=== PATIENT | female | born 1970 | race Caucasian/White ===

== ENCOUNTER 2017-12-22 04:01 | Observation (INO) | payer OTHER ==
[2017-12-22] MEDS ORDERED: Albuterol 2.5 MG/3 ML NEB.SOL* (0.083%) INH PRN (04:44)
[2017-12-22] MEDS ORDERED: CMCS:Melatonin (NF) 3 MG TAB PO PRN (04:44)
[2017-12-22] MEDS ORDERED: Ondansetron INJ* 2 MG/ML VIAL IV PRN (04:44)
[2017-12-22] MEDS ORDERED: Acetaminophen TAB* 325 MG PO PRN (04:44)
[2017-12-22] MEDS ORDERED: NS 0.9% 1000 ML* 1,000 ML IV SCH (04:45)
--- NOTE | 2017-12-22 04:51 | HP ---
H&P (Free Text) History and Physical: PCP: DON Garza Date/Time: 12/22/2017 0447 CC: R arm shaking HPI: Mrs Manley is a 47YO female poor historian w/ HX HTN & anxiety who reports sudden onset of uncontrollable RUE shaking around 2100 associated with slurred speech. This lasted "a couple of minutes" and when the shaking resolved she had some RUE numbness, but no tingling, weakness, difficulty swallowing, loss of bowel/bladder, chest pain, SOB, N/V, diarrhea, F/C, sweats, palpitations , or other issues. She has had a frontal/occipital headache for the past 2 days which is unusual only in that it has not responded to OTC meds. It is also notable that she had informed both [facility] [place] [facility] where she originally presented as well as Dr Araujo here at [facility] that she had had slurred speech, but denies this to me the 1st 2 times I asked, only admitting to it the 3rd time the question was asked. [place] [facility] reportedly attempted to contact our on-call neurology, but was unable. PMedHx HTN anxiety HX cervical CA SBO asthma GERD Ambulatory Orders Nursing to reconcile. Lisinopril 20 mg PO DAILY 03/21/13 ALPRAZolam TAB* [Xanax TAB*] 0.5 tab PO TID PRN 05/16/15 Aspirin EC Low Dose* [Ecotrin EC Low Dose*] 81 mg PO DAILY 05/16/15 Cholecalciferol [Vitamin D3] 2,000 unit PO DAILY 05/16/15 Isosorbide Dinitrate TAB* [Isordil TAB*] 30 mg PO DAILY 05/16/15 Venlafaxine EXT RELEASE CAP* [Effexor Xr CAP*] 150 mg PO DAILY 05/16/15 amLODIPine TAB* [Norvasc TAB*] 2.5 mg PO DAILY 05/16/15 Allergies No Known Allergies Allergy (Verified 12/22/17 04:31) PSurgHx endometrial ablation D&C section tubal ligation SocHx: 1/2PPD cigarettes, denies alcohol & recreational drugs; lives with her boyfriend; works as a date night caregiver; full code status FamHx: denies ROS: as above, otherwise reviewed and all were negative vitals: Vital Signs Temp 37.0 C 12/22/17 04:06 Pulse 61 12/22/17 04:18 Resp 19 12/22/17 04:18 BP 154/78 12/22/17 04:17 Pulse Ox 93 12/22/17 04:18 Intake & Output 12/21/17 12/21/17 12/22/17 11:59 23:59 11:59 Weight 79.379 kg Constitutional: NAD, normally developed, overweight white female HEENM: atraumatic; sclera/conjunctiva: anicteric/clear; hearing: clinically mildly decreased; oropharynx: clear, mucosa moist Neck: soft tissue: no nuchal rigidity; thyroid: normal Pulmonary: clear to auscultation bilaterally, good aeration, no accessory muscle use CV: RR/RR, normal S1S2, no carotid bruit, no jugular venous distention, 2+ B DP/ PT, no edema Abdominal: soft, non-distended, non-tender, no rebound/guarding/rigidity, normoactive bowel sounds, no hepatosplenomegaly or masses, no costovertebral angle tenderness Musculoskeletal: general: grossly intact, no tenderness w/ palpation Integumental: normal appearance and texture of exposed skin Psychiatric orientation: AA&O to PPS affect: calm mood: cooperative eye contact: poor content: unreliable responses: mildly slowed insight: poor Testing: (Kaz) reviewed ECG, personally reviewed: (Kaz) NSR rate 71, no ischemia CT brain WO: (Kaz) films currently unavailable for review: IMPRESSION: No acute intracranial abnormality CTA brain: (Kaz) films currently unavailable for review: IMPRESSION: Unremarkable CTA of the brain Impression: 47F presenting w/ transient neurologic complaints, seizure vs TIA vs anxiety DIAGNOSIS & PLAN Primary transient neurologic complaints, dDx seizure vs TIA vs anxiety : telemetry : neurologic checks : EEG in AM : MRI in AM : consult neurology in AM : supplemental oxygen : supportive care Secondary HTN : review meds once reconciled anxiety : review meds once reconciled tobacco use disorder : cessation advised, low motivation GERD : omeprazole Admission Rational: observation for transient neurologic complaint DVTp: heparin SQ Code Status: full
--- NOTE | 2017-12-22 05:04 | ED ---
Isabelle Engel Gabriel, scribed for Sharan Araujo MD on 12/22/17 at 0501 . Neurological HPI - HPI Summary HPI Summary: This patient is a 47 year old F BIBA to [facility] from [facility] because they have no neurology cover. Pt states she was sitting on her couch when her right arm starting jerking and she was unable to control it, this lasted three minutes. She was aware her arm was moving and after this began she reports right sided facial numbness and arm numbness lasting a few minutes after the uncontrolled shaking began. This only lasted a short time but when she regained feeling she was weak. During this episode she states she experienced slurred speech. Pt takes medication for HTN and she took a pill for anxiety during the "last storm". The patient currently has a headache and states she doesnt get them often. The patient rates the pain 5 /10 in severity. Takes ASA daily. - History of Current Complaint Chief Complaint: EDNeurologicalDeficit Stated Complaint: NEURO Time Seen by Provider: 12/22/17 04:07 Hx Obtained From: Patient Hx Last Menstrual Period: ablation 2009 Onset/Duration: Sudden Onset, Resolved Timing: Intermittent Episodes Lasting: - a few minutes Onset Severity: Severe Current Severity: None Pain Intensity: 5 Pain Scale Used: 0-10 Numeric Syncope Context: Loss of Consciousness: No Syncope Location: Partial Extremities Alleviating: Spontanious Resolution Associated Signs and Symptoms: Positive: Headache, Weakness, Numbness. Negative : Loss of Consciousness - Allergy/Home Medications Allergies/Adverse Reactions: Allergies Allergy/AdvReac Type Severity Reaction Status Date / Time No Known Allergies Allergy Verified 12/22/17 04:31 PMH/Surg Hx/FS Hx/Imm Hx Endocrine/Hematology History: Denies: Hx Diabetes, Hx Thyroid Disease Cardiovascular History: Reports: Hx Hypertension Denies: Hx Pacemaker/ICD Respiratory History: Denies: Hx Asthma, Hx Chronic Obstructive Pulmonary Disease (COPD) GI History: Denies: Hx Ulcer History: Denies: Hx Renal Disease Sensory History: Denies: Hx Hearing Aid Psychiatric History: Reports: Hx Panic Disorder - ANXIETY - Cancer History Cancer Type, Location and Year: cervical ca - Surgical History Surgery Procedure, Year, and Place: ablation. Small Bowel Obstruction with surgery 2009. laparoscopy 1988. tubal 2006. lt breast biopsy at [facility] 11/26 - Immunization History Date of Influenza Vaccine: Fall 2016 Infectious Disease History: No Infectious Disease History: Denies: Hx Hepatitis, Hx Human Immunodeficiency Virus (HIV), Traveled Outside the [place] in Last 30 Days - Family History Known Family History: Negative: Hypertension, Diabetes, Renal Disease, Respiratory Disease, Seizure Disorder, Blood Disorder - Social History Lives: With Family Alcohol Use: None Alcohol Amount: since 12/2014 Substance Use Type: Reports: None Smoking Status (MU): Heavy Every Day Tobacco Smoker Type: Cigarettes Amount Used/How Often: 1/2-1 ppd Length of Time of Smoking/Using Tobacco: age 16 Review of Systems Negative: Fever Neurological: Other - uncontrolled movement of right arm Positive: Headache, Weakness, Numbness, Slurred Speech All Other Systems Reviewed And Are Negative: Yes Physical Exam - Summary Physical Exam Summary: VITAL SIGNS: Reviewed. GENERAL: Patient is a well-developed and nourished female who is lying comfortable in the stretcher. Patient is not in any acute respiratory distress. HEAD AND FACE: No signs of trauma. No ecchymosis, hematomas or skull depressions. No sinus tenderness. EYES: PERRLA, EOMI x 2, No injected conjunctiva, no nystagmus. EARS: Hearing grossly intact. Ear canals and tympanic membranes are within normal limits. MOUTH: Oropharynx within normal limits. NECK: Supple, trachea is midline, no adenopathy, no JVD, no carotid bruit, no c- spine tenderness, neck with full ROM. CHEST: Symmetric, no tenderness at palpation LUNGS: Clear to auscultation bilaterally. No wheezing or crackles. CVS: Regular rate and rhythm, S1 and S2 present, no murmurs or gallops appreciated. ABDOMEN: Soft, non-tender. No signs of distention. No rebound no guarding, and no masses palpated. Bowel sounds are normal. EXTREMITIES: FROM in all major joints, no edema, no cyanosis or clubbing. NEURO: Alert and oriented x 3. No acute neurological deficits. Speech is normal and follows commands. SKIN: Dry and warm Triage Information Reviewed: Yes Vital Signs On Initial Exam: Initial Vitals Temp Pulse Resp BP Pulse Ox 98.6 F 70 16 168/83 94 12/22/17 04:06 12/22/17 04:06 12/22/17 04:06 12/22/17 04:06 12/22/17 04:06 Vital Signs Reviewed: Yes Diagnostics - Vital Signs Vital Signs Temp Pulse Resp BP Pulse Ox 12/22/17 04:18 61 19 93 12/22/17 04:17 154/78 12/22/17 04:06 98.6 F 70 16 168/83 94 - Laboratory Lab Statement: Any lab studies that have been ordered have been reviewed, and results considered in the medical decision making process. Course/Dx - Course Assessment/Plan: This patient is a 47 year old F BIBA to [facility] from [facility] ED because they have no neurology cover. Pt states she was sitting on her couch when her right arm starting jerking and she was unable to control it, this lasted three minutes. She was aware her arm was moving and after this began she reports right sided facial numbness and arm numbness lasting a few minutes after the uncontrolled shaking began. This only lasted a short time but when she regained feeling she was weak. During this episode she states she experienced slurred speech. Pt takes medication for HTN and she took a pill for anxiety during the last storm. The patient currently has a headache and states she doesnt get them often. The patient rates the pain 5 /10 in severity. Takes ASA daily. An EKG reveals NSR at 71 BPM Normal axis. Normal interval. No ischemic changes time 2147 done at [place]. I reviewed the blood work and CT head done at [place]. Test results with no significant abnormalities. We discussed patient care with Dr. Kumar and they agreed to admit the patient. Patient will be admitted. The patient is agreeable with this plan. - Diagnoses Provider Diagnoses: seizure vs TIA - Physician Notifications Discussed Care Of Patient With: Salvador Kumar Time Discussed With Above Provider: 04:30 Instructed by Provider To: Admit As Inpatient Discharge - Discharge Plan Condition: Fair Disposition: ADMITTED TO [facility] Referrals: Tita Tabares PA [Primary Care Provider] - The documentation as recorded by the Isabelle lucero Gabriel accurately reflects the service I personally performed and the decisions made by me, Sharan Araujo MD.
[2017-12-22 05:28] LABS: ABS Basophils 0.1 10^3/ul (0-0.2); ABS Eosinophils 0.5 10^3/ul (0-0.6); ABS Monocytes 0.9 10^3/ul (0-0.8); ABS Neutrophils 5.4 10^3/ul (1.5-7.7); ABS Nucleated RBC 0 10^3/ul; Hematocrit 39 % (35-47); Hemoglobin 13.2 g/dl (12.0-16.0); Lymphocyte % 42.2 % (25-47); Mean Corpuscular HGB Conc 34 g/dl (31-36); Mean Corpuscular Hemoglobin 32 pg (27-31); Mean Corpuscular Volume 94 fL (80-97); Mean Platelet Volume 8 um3 (7.4-10.4); Nucleated Red Blood Cells % 0.1; Platelet Count 232 10^3/ul (150-450); Red Blood Count 4.11 10^6/ul (4.0-5.4); Red Cell Distribution Width 12 % (10.5-15); White Blood Count 11.7 10^3/ul (3.5-10.8)
[2017-12-22] MEDS ORDERED: hydrALAZINE IV* 20 MG/ML VIAL IV PRN (05:36)
[2017-12-22 05:43] LABS: EGFR Non-African American 96.8 (>60)
[2017-12-22 05:45] LABS: INR 0.9 (0.77-1.02)
[2017-12-22] MEDS ORDERED: Omeprazole CAP* 20 MG PO SCH (06:00)
[2017-12-22] MEDS ORDERED: LORazepam INJ* 2 MG/ML 1 ML VIAL IV PUSH ONE (08:20)
[2017-12-22] MEDS ORDERED: Docusate CAP* 100 MG PO SCH (09:00)
[2017-12-22] MEDS ORDERED: Aspirin EC Low Dose* 81 MG TAB.EC PO SCH (09:00)
[2017-12-22] MEDS ORDERED: amLODIPine TAB* 5 MG PO SCH (09:00)
[2017-12-22] MEDS ORDERED: Lisinopril TAB* 10 MG PO SCH (09:00)
--- NOTE | 2017-12-22 12:16 | RAD ---
INDICATION: TIA CVA workup. COMPARISON: Comparison is made with a prior CT of the brain from every 2018. TECHNIQUE: Sagittal T1, axial T1, T2, susceptibility, FLAIR and diffusion weighted images were obtained. The exam is limited due to motion artifact. FINDINGS: The ventricles, cisterns and sulci appear to be within normal limits. No significant focal abnormality or mass effect is seen. No areas of restricted diffusion are present. There is no evidence for infarct or hemorrhage. The visualized portion of the paranasal sinuses and mastoid air cells appear clear. IMPRESSION: SLIGHTLY LIMITED EXAM, NO EVIDENCE FOR ACUTE INTRACRANIAL ABNORMALITY.
--- NOTE | 2017-12-22 14:28 | ECHO ---
Patient: RIGO KIM [facility] Rec#: [id number] : 1970 Date: 12/22/2017 Age: 47y Height: 172.72 cm / 68.0 in Weight: 79.38 kg / 175.0 lbs Sex: F BSA: 1.93 Room#: [facility] Admit Date#: 12/22/2017 Type: Inpatient Referring: Salvador Kumar MD Reading: Hayes Palm MD Professor Of Medicine: Lindsay Almaraz RD,RDMS Transthoracic Echocardiogram Indication: TIA BP: 129/95 HR: 68 Rhythm: NSR Findings History: Murmur, HTN, smoker Technical Comments: The study quality is good. Left Ventricle: The left ventricular chamber size is normal. Mild concentric left ventricular hypertrophy is observed. There is normal left ventricular systolic function. The estimated ejection fraction is 60-65%. There is no consistent Doppler evidence of clinically significant diastolic dysfunction. Left Atrium: The left atrial chamber size is normal. Right Ventricle: The right ventricular chamber size and systolic function are within normal limits. The right ventricle wall thickness is mildly increased. Right Atrium: The right atrial cavity size is normal. Aortic Valve: The aortic valve is trileaflet. The aortic valve leaflets are mildly thickened. There is moderate thickening of the left coronary cusp. There is moderate thickening of the non coronary cusp. Systolic excursion of the non coronary cusp is reduced. Systolic excursion of the left coronary cusp is reduced. There is mild aortic regurgitation. There is mild aortic stenosis. The aortic valve area, by peak velocities, is calculated at 1.6 cm2. Highest aortic valve velocity was acquired with Pedoff in suprasternal notch position. Mitral Valve: The mitral valve leaflets appear normal. There is no evidence of mitral regurgitation. There is no evidence of mitral stenosis. Tricuspid Valve: The tricuspid valve leaflets are normal. There is trace tricuspid regurgitation. Unable to estimate the right ventricular systolic pressure. Pulmonic Valve: There is no evidence of pulmonic valve thickening. There is no evidence of pulmonic regurgitation. Pericardium: There is no significant pericardial effusion. Aorta: The aortic root appears normal. There is no dilatation of the aortic arch. Pulmonary Artery: The main pulmonary artery appears normal. Venous: The inferior vena cava appears normal in size. There is a greater than 50% respiratory change in the inferior vena cava dimension. Summary: There was not any prior study for comparison. Conclusions Mild concentric left ventricular hypertrophy is observed. There is normal left ventricular systolic function. The right ventricle wall thickness is mildly increased. There is moderate thickening of the left coronary cusp. There is moderate thickening of the non coronary cusp. There is mild aortic regurgitation. There is mild aortic stenosis. The estimated ejection fraction is 60-65%. Measurements Name Value Normal Range RVIDd (AP) 2D 2.8 cm (0.9 - 2.6) RVDdMajor (2D) 2.6 cm (2.2 - 4.4) RAd ISD 4CH 4.2 cm (3.4 - 4.9) RA (A4C)W 3.9 cm (2.9 - 4.6) IVSd (2D) 1.1 cm (0.6 - 1) LVPWd (2D) 1.1 cm (0.6 - 1) LVIDd (2D) 4.6 cm (3.6 - 5.4) LVIDs (2D) 3 cm - LV FS (2D) 35 % (25 - 45) Aortic Annulus 2.1 cm (1.4 - 2.6) Ao root diameter (2D) 3 cm (2.1 - 3.5) Ascending Ao 2.9 cm (2.1 - 3.4) Aortic arch 2.4 cm (1.8 - 3.4) LA dimension (AP) 2D 3 cm (2.3 - 3.8) LAd ISD 4CH 5.3 cm (2.9 - 5.3) LA ISD 4CH W 4.8 cm (2.5 - 4.5) Name Value Normal Range LA ESV SP 4CH (A/L) 62.37 ml - LA ESV SP 2CH (A/L) 48.79 ml - LA ESV BP (A/L) 58.29 ml - LA ESV BP (A/L) index 30 ml/m2 - LA ESV SP 4CH (MOD) 58.76 ml - LA ESV SP 2CH (MOD) 46.39 ml - LV EDV SP 4CH (MOD) 91.18 ml - LV ESV SP 4CH (MOD) 25.47 ml - EF SP 4CH (MOD) 72.07 % - LV EDV SP 2CH (MOD) 86.21 ml - LV ESV SP 2CH (MOD) 38.34 ml - EF SP 2CH (MOD) 55.52 % - LV EDV BP 90.58 ml - LV ESV BP 31.71 ml - BP EF (MOD) 65 % - Name Value Normal Range MV E-wave Vmax 0.7 m/sec - MV deceleration time 268 msec - MV A-wave Vmax 0.8 m/sec - MV E:A ratio 0.9 ratio - LV septal e' Vmax 0.07 m/sec - LV lateral e' Vmax 0.09 m/sec - LV E:e' septal ratio 10 ratio - LV E:e' lateral ratio 8 ratio - Name Value Normal Range AV Vmax 2.6 m/sec - AV VTI 54 cm - AV peak gradient 27 mmHg - AV mean gradient 11 mmHg - LVOT diameter 2 cm - LVOT Vmax 1.3 m/sec - LVOT VTI 32 cm - LVOT peak gradient 7 mmHg - LVOT mean gradient 3.4 mmHg - DOI (VTI) 0.6 ratio - SV LVOT 97.38 ml - HAYDEN (continuity Vmax) 1.6 cm2 - HAYDEN (continuity VTI) 1.9 cm2 - AR PHT 791.22 msec - AR peak gradient 84.57 mmHg - DIANA Vmax 1.1 m/sec - Name Value Normal Range RAP 8 mmHg - IVC diameter 1.6 cm - Name Value Normal Range PV Vmax 0.9 m/sec - PV peak gradient 3.2 mmHg -
[2017-12-22 16:52] VITALS: BP 119/69
--- NOTE | 2017-12-22 23:54 | CONS ---
NEUROLOGY CONSULTATION: DATE OF CONSULT: 12/22/17 REFERRING PROVIDER: DON Cloud LOCATION: She is an inpatient in room 441. CHIEF COMPLAINT: Shaking spell. HISTORY OF PRESENT ILLNESS: Madison Manley is a 47-year-old right-handed woman, who was at home with her son and boyfriend yesterday when her right arm started to shake. It "terrified" her and her boyfriend called the ambulance. She was able to speak and did not lose consciousness during the episode at all. Her boyfriend said her speech sounded somewhat slurred. She remembers the whole thing. She does not recall feeling sick prior to it, but just that her hand started shaking and it scared her. 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 Normally, her hands do not bother her. She does have an anxiety disorder and her anxiety medication was changed a week ago. She only takes it when she feels very anxious, which is less than once a month. She does not know the name of it. She has never had a seizure before. There is no history of head trauma and no family history of epilepsy. PAST MEDICAL HISTORY: Notable for cervical stenosis, dystonic head tremor, anxiety disorder. She has history of hypertension, gastroesophageal reflux. MEDICATIONS: At home, consist of: 1. Norvasc 2.5 mg p.o. q. day. 2. Albuterol inhaler p.r.n. 3. Aspirin 81 mg p.o. q. day. 4. Lisinopril 20 mg p.o. q. day. 5. Hydroxyzine 25 mg p.o. t.i.d. p.r.n. anxiety attack. ALLERGIES: She does not have any drug allergies. FAMILY HISTORY: Negative for epilepsy. She is a nonsmoker, does not drink alcohol. Lives at her own home with her son. REVIEW OF SYSTEMS: Negative for seizures, head trauma, cerebrovascular events, cardiac, pulmonary, renal, GI, or disease. No recent weight loss. No recent sore throats, fevers, or other respiratory symptoms. PHYSICAL EXAM: She is a little bit overweight, well-hydrated. Vitals: Temperature 97.4, blood pressure most recently 153/83, heart rate in the 60s and regular, respiratory rate is 16, and oxygen saturation is 97% on room air. Lungs are clear bilaterally. Neck is supple. Head is atraumatic. There are no cervical bruits. Oral mucosa is moist and atraumatic. Heart is in a regular rhythm without murmurs. Neurological exam, pupils react equally from about 3.5 to 2.5 mm. Eye movements and visual koroma are normal. Funduscopic exam reveal sharp discs bilaterally. Facial musculature is symmetric. Facial sensation to light touch is symmetric. Palate and tongue appear normal, there is no dysarthria. Neck strength is intact and hearing is intact. Motor exam reveals normal muscle tone, strength in the limbs proximally and distally. There is no pronator drift. Sensory exam is intact to light touch and temperature and vibration. She has a mild neck tremor. There is very mild sustention tremor in the hands. There is no rest tremor. [id number] maneuver is normal bilaterally. Finger taps are normal bilaterally. Reflexes are intact and symmetric in upper and lower extremities. Plantar responses are flexor bilaterally. She is alert and oriented and good historian. Memory is intact and language is fluent. She has adequate attention, concentration, and fund of knowledge. DIAGNOSTIC STUDIES/LAB DATA: Includes an EEG which read earlier today and it is a normal awake EEG. MRI of the brain, images are reviewed and the report is also a normal MRI of the brain. Other laboratory studies notable for normal CBC, normal chemistry profile, hemoglobin A1c 5.8%. Reports from [facility] Emergency Room CT angiogram of the neck was normal. She had an echocardiogram earlier today, also interpreted as normal. IMPRESSION AND PLAN: Impression is that of probable anxiety attack. I doubt she had a seizure with right arm shaking in a right-handed person who is able to speak and no loss of consciousness. I think she could be discharged on her usual home medications. If she has recurrent spells, she could be reevaluated by Dr. Pineda. [id number]/[facility] #: [id number] TERELL
[2017-12-23] MEDS ORDERED: Heparin VIAL(*) 5000 UNITS/ML VIAL (FIVE THOUSAND) SUBCUT SCH (06:00)
[2017-12-23] MEDS ORDERED: Aspirin EC Low Dose* 81 MG TAB.EC PO SCH (09:00)
--- NOTE | 2017-12-23 10:08 | EEG ---
ELECTROENCEPHALOGRAPHY: DATE OF STUDY: 12/22/17 REFERRING PROVIDER: Dr. Kumar. LOCATION: She is an inpatient in room 441. CLINICAL HISTORY: Episode of slurred speech and right arm shaking. MEDICATIONS: Include: 1. Apresoline. 2. Heparin. 3. Prinivil. 4. Norvasc. 5. Zofran. REPORT: The 16-channel EEG is remarkable for background rhythms consisting of a well formed alpha rh ythm in the posterior derivations at 9 cycles per second, which is symmetric and suppressed by eye op ening. Low voltage beta rhythms are seen bifrontally. The patient drowses intermittently throughout the recording with central and bitemporal theta rhythms noted. Stage II sleep is not achieved. Acti vation procedures are not attempted. There are no focal, lateralize, or epileptiform abnormalities. INTERPRETATION: Normal awake and drowsy EEG. [id number]/[facility] #: [id number]
--- NOTE | 2017-12-23 15:42 | DS ---
CC: Dr. Tita Tabares * DISCHARGE SUMMARY: DATE OF ADMISSION: 12/22/17 DATE OF DISCHARGE: 12/22/17 PRIMARY CARE PROVIDER: DON Cordova. MY ATTENDING WHILE IN THE HOSPITAL: Yoandy Wiley MD * (DICTATED BY DON SIEGEL) PRIMARY DISCHARGE DIAGNOSES: 1. Probable anxiety attacks. 2. Tremor. SECONDARY DISCHARGE DIAGNOSES: 1. Hypertension. 2. Prediabetes. 3. Anxiety. 4. Asthma. 5. Gastroesophageal reflux disease. STUDIES DONE WHILE IN THE HOSPITAL: Brain MRI from 12/22/17 read as slightly limited exam. No evidence for acute intracranial abnormality. Transthoracic echocardiogram from 12/22/17 shows mild concentric left ventricular hypertrophy , normal left ventricular systolic function. Right ventricle wall thickness mildly increased, moderate thickening of the left coronary cusp, moderate thickening of the noncoronary cusp, mild aortic regurgitation, mild aortic stenosis. Estimated ejection fraction 60% to 65%. EEG done while in the hospital discussed with Dr. Phu Ojeda of Neurology and it was normal. CT of the brain from [facility] was read by their neurologist as normal. No intracranial abnormality. CTA of the brain from [facility] read as unremarkable. MEDICATIONS AT DISCHARGE: 1. Lisinopril 20 mg p.o. daily. 2. Amlodipine 2.5 mg p.o. daily. 3. Aspirin 81 mg p.o. daily. 4. Hydroxyzine 25 mg p.o. t.i.d. There are no changes made to the patient's medications while in the hospital. HOSPITAL COURSE: This is a brief summary of the patient's presentation. For more details, please see history and physical from Dr. Salvador Kumar on 12/22. In brief, the patient is a 47-year-old female with past medical history significant as noted above who presents with a brief episode of uncontrolled right upper extremity shaking and slurred speech that lasted a couple minutes. The patient also had some right upper extremity and right facial numbness, which resolved also in the course of couple minutes. The patient denied weakness, difficulty swallowing, loss of bowel or bladder control, or other associated symptoms. The patient has a headache, which is not uncommon for her and cannot respond to [id number] meds for couple of days. The patient was equivocal in the emergency department whether or not she had slurred speech. The patient had returned to baseline at the time she was examined. The patient states that she had a blood pressure of 230/110 when being examined by the paramedics. However, this was not documented and her blood pressure got while in the emergency department was 178/77. The patient originally presented to [facility] who was going to admit her and consult Neurology, but did not have Neurology available. The patient was then sent to this institution. The patient was admitted and had a workup for TIA as above. The patient had no signs of TIA and no abnormal laboratory findings while in the hospital except for a slightly elevated hemoglobin A1c as 5.8, which is 1 points into the prediabetic range and LDL cholesterol of 121. The patient's white blood cell count was also 11.7. The patient's HDL cholesterol was 46.4. The patient was seen in consultation by Dr. Ojeda of Neurology and it was deemed that this was most unlikely due to seizure or ischemic event. The patient sees Dr. Pineda for a neck tremor, which is known, but does not have any known cause, but that sometimes affects her arms as well. It was deemed this is likely an anxiety attack exacerbating an underlying tremor. Control of the patient's anxiety was discussed with the patient and she stated that she had only taken her hydroxyzine once and that she recently had a change in medication for her anxiety discontinuing her Xanax, which she previously had as needed for anxiety. The patient was amenable to discharge. PHYSICAL EXAM ON DAY OF DISCHARGE: General: The patient is a 47-year-old female appears stated age and sitting comfortably in bed, in no acute distress. Vital Signs: At the time of discharge; temperature 98.2, pulse rate 67, respiratory rate 20, oxygen saturation 98% on room air, blood pressure 119/69. Neck: Supple, nontender. No lymphadenopathy. No carotid bruits auscultated. Cardiac: Regular rate and rhythm. No clicks, murmurs, gallops, or rubs. Pulses 2+ in bilateral dorsalis pedis, posterior tibialis, and radial areas. Respiratory: Clear to auscultation bilaterally. No wheezes, rales, or rhonchi. Good air exchange bilaterally. Skin: Clean, dry, and intact. No rash. Neuro: Cranial nerves II through XII intact. Strength 5/5 in the bilateral upper and lower extremities distally and proximally. Sensation to light touch intact in the bilateral upper extremities distally and proximally. Reflexes 2+ in bilateral biceps, patellar, and Achilles area, Babinski's downgoing bilaterally. Cerebellar testing including [id number]-mr-fjwn, rapid alternating movements, and oqlf-gv-vaub performed without difficulty. LABORATORY DATA ON DAY OF DISCHARGE: White blood cell count 11.7, hemoglobin 13.2, and platelet count 232. INR 0.9, APTT 25.6. Sodium 135, potassium 4.0, chloride 106, carbon dioxide 22, anion gap 7, BUN 14, creatinine 0.66, glucose 101. Hemoglobin A1c 5.8. Calcium 9.1. Triglycerides 145, cholesterol 196, LDL cholesterol 121, HDL cholesterol 46.4. DISCHARGE PLAN: The patient was discharged to home. This episode most likely due to an anxiety attack. The patient should follow up with her primary care provider for better control of her anxiety. The patient should address her hemoglobin A1c, which is in the prediabetic range. The patient should also discuss her LDL cholesterol. The patient does not meet Peck criteria for treatment of her hyperlipidemia at this time. The patient should continue on aspirin for primary prevention of stroke and coronary artery disease. The patient should return to the hospital for repeat episode such as this, chest pain, shortness of breath, or other alarming symptoms. The patient should engage in activity as tolerated and have a heart healthy diet without caffeine. TIME SPENT: Approximately 60 minutes was spent on this discharge, 30 of which was spent [id number] with the patient obtaining history and physical and discussing the treatment plan. DON SIEGEL [id number]/[facility] #: [id number] TERELL
== END 2017-12-22 17:45 | disposition home or self-care (01) ==
LOC: ED 04:01 → MEDTELE 04:43
PROVIDERS: ADMIT Hospitalist; ATTEND Hospitalist
DX: R25.1 Tremor, unspecified (principal); I10 Essential (primary) hypertension; R73.03 Prediabetes; F41.9 Anxiety disorder, unspecified; J45.909 Unspecified asthma, uncomplicated; K21.9 Gastro-esophageal reflux disease without esophagitis; R51 Headache; Z79.82 Long term (current) use of aspirin; Z85.41 Personal history of malignant neoplasm of cervix uteri; R06.02 Shortness of breath; R53.1 Weakness; F17.210 Nicotine dependence, cigarettes, uncomplicated
CPT/HCPCS: 36415; 70551; 80048; 80061; 83036; 85025; 85610; 85730; 93306; 94760; 95819; 96374; 99284; 99406; A9270-GY; G0378; J2060

== ENCOUNTER 2018-02-16 11:28 | Emergency (ER) | payer OTHER ==
[2018-02-16 12:02] VITALS: BP 172/79
--- NOTE | 2018-02-16 12:39 | UC ---
Upper Extremity HPI - HPI Summary HPI Summary: 48 year old female with left arm weakness. She has [place] [facility] [place] and seen by Neuro Dr Ojeda . No acute findings on exam then and had neg echo, CT, MRI, EKG. Today with arm weakness in her other arm. Weakness been present for 3 days and not improved AND started after she woke up. Can not parts picker keys and can not extend hand easily. Has history of cervical stenosis and was to see Dr Ojeda in April. - History of Current Complaint Chief Complaint: UCGeneralIllness Stated Complaint: RIGHT ARM NUMB Time Seen by Provider: 02/16/18 11:58 Hx Obtained From: Patient, Family/Audiovisual Production Specialist Hx Last Menstrual Period: ablation 2009 Onset/Duration: Sudden Onset Severity Initially: Moderate Severity Currently: Moderate Pain Intensity: 0 Aggravating Factor(s): Nothing Alleviating Factor(s): Nothing Associated Signs And Symptoms: Positive: Weakness, Numbness/Tingling Related History: Dominant Hand Right - Allergies/Home Medications Allergies/Adverse Reactions: Allergies Allergy/AdvReac Type Severity Reaction Status Date / Time No Known Allergies Allergy Verified 02/16/18 12:14 PMH/Surg Hx/FS Hx/Imm Hx Previously Healthy: Yes Psychological History: Anxiety, Depression - Surgical History Surgical History: Yes Surgery Procedure, Year, and Place: ablation. Small Bowel Obstruction with surgery 2009. laparoscopy 1988. tubal 2006. lt breast biopsy at [facility] 11/26 - Family History Known Family History: Negative: Hypertension, Diabetes, Renal Disease, Respiratory Disease, Seizure Disorder, Blood Disorder - Social History Lives: With Family Alcohol Use: Occasionally Alcohol Amount: since 12/2014 Substance Use Type: None Smoking Status (MU): Heavy Every Day Tobacco Smoker Type: Cigarettes Amount Used/How Often: 1 ppd Length of Time of Smoking/Using Tobacco: age 16 Have You Smoked in the Last Year: Yes Household Exposure Type: Cigarettes - Immunization History Most Recent Tetanus Shot: unknown Review of Systems Neurological: Weakness, Paresthesia, Numbness Is Patient Immunocompromised?: No All Other Systems Reviewed And Are Negative: Yes Physical Exam Triage Information Reviewed: Yes Appearance: Well-Appearing, No Pain Distress, Well-Nourished Vital Signs: Initial Vital Signs Temp 98.4 F 02/16/18 11:53 Pulse 67 02/16/18 11:53 Resp 16 02/16/18 11:53 BP 172/79 02/16/18 11:53 Pulse Ox 99 02/16/18 11:53 Vital Signs Reviewed: Yes Respiratory Exam: Normal Cardiovascular Exam: Normal Musculoskeletal: Positive: Strength Limited @ - right 5/5 left 4/5. sensation intact. cap refill < 3 sec. peripheral pulses brisk. difficulty extending, ROM Limited @ - left UE . Neurological: Positive: Alert, Abnormal Muscle Tone Psychological Exam: Normal Skin Exam: Normal Upper Extremity Course/Dx - Course Course Of Treatment: Spoke with Dr Ojeda and advised to go to ED for further work up for potential 3 day old stroke. Patient willing to via car with family member and declined ambulance. They are willing to go there at this time. Spoke with Dr Whitten who is willing to accept patient - Differential Dx/Diagnosis Differential Diagnosis/HQI/PQRI: Strain, Sprain Provider Diagnoses: Left arm weakness Discharge - Sign-Out/Discharge Documenting (check all that apply): Discharge - Discharge Plan Condition: Fair Disposition: [facility] Patient Education Materials: Cervical Spinal Stenosis (ED) Referrals: Tita Tabares PA [Primary Care Provider] - Additional Instructions: GO DIRECTLY TO THE EMERGENCY ROOM RIGHT NOW TO [place] [facility] FOR FURTHER EVALUATION - Billing Disposition and Condition Condition: FAIR Disposition: EMTALA
== END 2018-02-16 13:04 | disposition home or self-care (01) ==
LOC: UCCORT 11:28
DX: M62.81 Muscle weakness (generalized) (principal); F17.210 Nicotine dependence, cigarettes, uncomplicated
CPT/HCPCS: 93005; 99212; G0463

== ENCOUNTER 2018-02-16 14:08 | Emergency (ER) | payer OTHER ==
[2018-02-16 16:13] LABS: Hematocrit 43 % (35-47); Hemoglobin 15.1 g/dl (12.0-16.0); Mean Corpuscular HGB Conc 35 g/dl (31-36); Mean Corpuscular Hemoglobin 33 pg (27-31); Mean Corpuscular Volume 94 fL (80-97); Mean Platelet Volume 7.9 um3 (7.4-10.4); Platelet Count 279 10^3/ul (150-450); Red Blood Count 4.61 10^6/ul (4.0-5.4); Red Cell Distribution Width 13 % (10.5-15); White Blood Count 10.4 10^3/ul (3.5-10.8)
--- NOTE | 2018-02-16 16:20 | RAD ---
INDICATION: Arm numbness COMPARISON: CT brain December 21, 2017 TECHNIQUE: Noncontrast axial source images were acquired from the skull base to the vertex. FINDINGS: Ventricles/sulci: The ventricles and cisterns are normal in size and configuration for age. Brain parenchyma: There is no focal parenchymal finding, evidence of intracranial mass, or intracranial mass effect. Intracranial hemorrhage:None. Extra-axial spaces: There are no abnormal extra axial fluid collections or evidence of extra-axial mass. Calvarium: There is no calvarial fracture or other calvarial abnormality. Scalp: There is no evidence of scalp or extracalvarial soft tissue abnormality. Paranasal sinuses/mastoid: The paranasal sinuses and mastoid air cells are clear. Other: None. IMPRESSION: NO ACUTE INTRACRANIAL FINDINGS.
[2018-02-16 16:21] LABS: INR 0.94 (0.77-1.02)
[2018-02-16 16:30] LABS: EGFR Non-African American 84.5 (>60)
[2018-02-16 18:38] VITALS: BP 143/65
--- NOTE | 2018-02-16 21:50 | CONS ---
NEUROLOGY CONSULTATION: DATE OF CONSULT: 02/16/18 REFERRING PROVIDER: Dr. Whitten. LOCATION: She is in the emergency room. CHIEF COMPLAINT: Left arm weakness and numbness. HISTORY OF PRESENT ILLNESS: Ms. Manley is a 48-year-old woman who woke up 3 mornings ago with a sense of numbness and weakness of her left upper extremity distally. She had been exhausted the night before and her who is present today said she slept in a funny position with her left arm folded up under her head. She had not taken any sedatives the night before or had any alcohol and slept in a bed and not in chair. She has noticed any numbness of her face or weakness of her right arm or numbness or weakness of her legs. She has some neck pain, but it is chronic and no different than usual. She has no history of cerebrovascular disease, hypertension, or diabetes. She was evaluated in [facility] and found to have a weak left arm and referred here for neurological evaluation. PAST MEDICAL HISTORY: Notable for anxiety disorder and possibly hypertension. I had seen her in the hospital for an episode of shaking of her right arm at home, which I felt was probably associated with an anxiety attack. There is no history of cardiac disease. MEDICATIONS: At home consist of: 1. Atarax 50 mg p.o. t.i.d. p.r.n. anxiety. 2. Amlodipine 2.5 mg p.o. daily. 3. Lisinopril 20 mg p.o. daily. 4. Aspirin 81 mg p.o. daily. ALLERGIES: She does not have any drug allergies. FAMILY HISTORY: Noncontributory. REVIEW OF SYSTEMS: Negative for cardiac, pulmonary, renal, GI, or disease. She has not had any recent fevers or infections. No weight loss. PHYSICAL EXAM: She is well nourished and well hydrated. Blood pressure running about 106/80, heart rate is in the 60s and regular, respiratory rate 18 , oxygen saturation is 96% on room air, temperature is 98.2 temporally. Neurological Exam: Pupils are equal and there is no ptosis. Facial musculature is symmetric. Facial sensation is symmetric to light touch. Palate and tongue appear normal and there is no dysarthria. Palate raises symmetrically and tongue protrudes in the midline. Hearing is intact. On motor exam she has normal muscle tone and strength in the right arm and both legs. There is no spasticity in the legs. In the left upper extremity, she has normal strength other than less than antigravity wrist extensor, finger extensor, and barely antigravity thumb extensor weakness. She has normal funeral pre arrangement counselor strength, wrist flexion, and elbow flexion and extension. She has normal reflexes in the left upper extremity as well as the other extremities including the brachioradialis. There is no triceps or brachioradialis weakness on either side. She has normal sensation in the limbs other than decreased light touch in the left radial distribution on the back of the thumb. She is a good historian with intact memory and fluent language. She has normal attention, concentration , and adequate fund of knowledge. DIAGNOSTIC STUDIES/LAB DATA: Laboratory data includes a normal CBC and chemistry profile other than borderline sodium of 137. INR and PTT is normal. CT scan of the brain is reviewed and is interpreted as normal. I reviewed the images and I agree. IMPRESSION: Impression is of radial nerve palsy. She did not appear to be sedated unless she took some hydroxyzine before she slept. Her said she slept in a very funny position with her left arm folded up under her. I explained my impression to her and her . I told them that it should resolve in less than a month. I explained the mechanism of compression. I told her if it does not resolve within 2 weeks to give me a call in my office and I will have her come in and reevaluate. I do not think she needs any further diagnostic testing currently based on her clinical presentation. [id number]/[facility] #: [id number] MTDD
--- NOTE | 2018-02-21 12:27 | ED ---
Mario Engel Stephanie, scribed for Hector Whitten MD on 02/16/18 at 1653 . Neurological HPI - HPI Summary HPI Summary: The pt is a 48 y/o F presenting to the ED with c/o paresthesia in hands bilaterally that began on 02/13/18. She reports that she cannot straighten her L arm out and that she cannot hold anything in her L hand. The pt denies speech difficulty however, her fianc and son report changes in her speech and state that the pt "sounds drunk". - History of Current Complaint Chief Complaint: EDNeurologicalDeficit Stated Complaint: LIMITED USE OF LT HAND Time Seen by Provider: 02/16/18 14:48 Hx Obtained From: Patient Hx Last Menstrual Period: 2009 Onset/Duration: Sudden Onset, Started days ago - 3, Still Present Timing: Constant Current Severity: Mild Pain Intensity: 0 Pain Scale Used: 0-10 Numeric Aggravating: Nothing Alleviating: Nothing Associated Signs and Symptoms: Positive: Weakness - L arm, Impaired Speech, Numbness - hands bilaterally - Additional Pertinent History Primary Care Physician: [id number] - Allergy/Home Medications Allergies/Adverse Reactions: Allergies Allergy/AdvReac Type Severity Reaction Status Date / Time No Known Allergies Allergy Verified 02/16/18 12:14 Home Medications: Home Medications Cholecalciferol TAB* [Vitamin D TAB*] 2,000 units PO DAILY 02/16/18 [History Confirmed 02/16/18] Lisinopril TAB* [Prinivil TAB*] 20 mg PO DAILY 02/16/18 [History Confirmed 02/16] hydrOXYzine HCL TAB* [Atarax 25 MG TAB*] 25 - 50 mg PO TID PRN 02/16/18 [ History Confirmed 02/16/18] PMH/Surg Hx/FS Hx/Imm Hx Endocrine/Hematology History: Denies: Hx Diabetes, Hx Thyroid Disease Cardiovascular History: Reports: Hx Hypertension Denies: Hx Pacemaker/ICD Respiratory History: Denies: Hx Asthma, Hx Chronic Obstructive Pulmonary Disease (COPD) GI History: Denies: Hx Ulcer History: Denies: Hx Renal Disease Sensory History: Denies: Hx Contacts or Glasses, Hx Hearing Aid Opthamlomology History: Denies: Hx Contacts or Glasses Psychiatric History: Reports: Hx Panic Disorder - ANXIETY - Cancer History Cancer Type, Location and Year: cervical ca - Surgical History Surgery Procedure, Year, and Place: ablation. Small Bowel Obstruction with surgery 2009. laparoscopy 1988. tubal 2006. lt breast biopsy at [facility] 11/26 - Immunization History Date of Influenza Vaccine: Fall 2016 Infectious Disease History: No Infectious Disease History: Denies: Hx Hepatitis, Hx Human Immunodeficiency Virus (HIV), Traveled Outside the [place] in Last 30 Days - Family History Known Family History: Negative: Hypertension, Diabetes, Renal Disease, Respiratory Disease, Seizure Disorder, Blood Disorder - Social History Occupation: Disabled Lives: With Family Alcohol Use: Occasionally Alcohol Amount: since 12/2014 Hx Substance Use: No Substance Use Type: Reports: None Hx Tobacco Use: Yes Smoking Status (MU): Heavy Every Day Tobacco Smoker Type: Cigarettes Amount Used/How Often: 1 ppd Length of Time of Smoking/Using Tobacco: age 16 Have You Smoked in the Last Year: Yes Review of Systems Negative: Fever, Chills Negative: Erythema Negative: Sore Throat Negative: Chest Pain Negative: Shortness Of Breath, Cough Negative: Abdominal Pain, Vomiting, Nausea Negative: dysuria, hematuria Positive: Other - cannot straighten her L arm . Negative: Myalgia, Edema Negative: Rash Neurological: Other - Negative: dizziness Positive: Paresthesia - hands bilaterally, Numbness - hands bilaterally, Slurred Speech - pressured speech All Other Systems Reviewed And Are Negative: Yes Physical Exam - Summary Physical Exam Summary: Constitutional: Well-developed, Well-nourished, Alert. (-) Distressed Skin: Warm, Dry HENT: Normocephalic; Atraumatic Eyes: Conjunctiva normal Neck: Musculoskeletal ROM normal neck. (-) JVD, (-) Stridor, (-) Tracheal deviation Cardio: Rhythm regular, rate normal, Heart sounds normal; Intact distal pulses; The pedal pulses are 2+ and symmetric. Radial pulses are 2+ and symmetric. (-) Murmur Pulmonary/Chest wall: Effort normal. (-) Respiratory distress, (-) Wheezes, (-) Rales Abd: Soft, (-) Tenderness, (-) Distension, (-) Guarding, (-) Rebound Musculoskeletal: (-) Edema Lymph: (-) Cervical adenopathy Neuro: Alert, Oriented x3, L hand college administrator is weak, more dysmetria in R hand than L , smile symmetric, speech appeared deliberate Psych: Mood and affect Normal Triage Information Reviewed: Yes Vital Signs On Initial Exam: Initial Vitals Temp Pulse Resp BP Pulse Ox 98.2 F 73 16 139/80 99 02/16/18 14:15 02/16/18 14:15 02/16/18 14:15 02/16/18 14:15 02/16/18 14:15 Vital Signs Reviewed: Yes Diagnostics - Vital Signs Vital Signs Temp Pulse Resp BP Pulse Ox 02/16/18 15:30 66 18 96 02/16/18 15:13 106/78 02/16/18 15:11 71 97 02/16/18 14:15 98.2 F 73 16 139/80 99 - Laboratory Lab Results: Lab Results 02/16/18 02/16/18 02/16/18 Range/Units 15:33 15:33 15:33 WBC 10.4 (3.5-10.8) 10^3/ul RBC 4.61 (4.0-5.4) 10^6/ul Hgb 15.1 (12.0-16.0) g/dl Hct 43 (35-47) % MCV 94 (80-97) fL MCH 33 H (27-31) pg MCHC 35 (31-36) g/dl RDW 13 (10.5-15) % Plt Count 279 (150-450) 10^3/ul MPV 7.9 (7.4-10.4) um3 INR (Anticoag Therapy) 0.94 (0.77-1.02) APTT 30.7 (26.0-36.3) seconds Sodium 137 L (139-145) mmol/L Potassium 3.9 (3.5-5.0) mmol/L Chloride 102 (101-111) mmol/L Carbon Dioxide 26 (22-32) mmol/L Anion Gap 9 (2-11) mmol/L BUN 10 (6-24) mg/dL Creatinine 0.74 (0.51-0.95) mg/dL Est GFR ( Amer) 108.7 (>60) Est GFR (Non-Af Amer) 84.5 (>60) BUN/Creatinine Ratio 13.5 (8-20) Glucose 92 (70-100) mg/dL Calcium 9.9 (8.6-10.3) mg/dL Total Bilirubin 0.30 (0.2-1.0) mg/dL AST 15 (13-39) U/L ALT 14 (7-52) U/L Alkaline Phosphatase 70 (34-104) U/L Total Protein 8.0 (6.4-8.9) g/dL Albumin 4.7 (3.2-5.2) g/dL Globulin 3.3 (2-4) g/dL Albumin/Globulin Ratio 1.4 (1-3) Result Diagrams: 02/16/18 15:33 02/16/18 15:33 Lab Statement: Any lab studies that have been ordered have been reviewed, and results considered in the medical decision making process. - CT Brain CT Interpretation: No Acute Changes CT Interpretation Completed By: Radiologist - NO ACUTE INTRACRANIAL FINDING. ED physician has reviewed this report. - EKG 15:36 Cardiac Rate: NL EKG Rhythm: Sinus Rhythm - 64 BPM EKG Interpretation: No STEMI Re-Evaluation - Re-Evaluation First Eval Re-Evaluation Time: 17:40 Change: Unchanged - ED physician discussed plan of discharge with the pt. Course/Dx - Course Course Of Treatment: Dr. Ojeda is the treating neurologist as out-patient. Past hx of resting tremor in R hand. All deficits are in radial nerve distribution and the pt has hx concerning for compression of radial nerve while she was sleeping. Expected management with cock-up splint. - Diagnoses Provider Diagnoses: Radial nerve palsy Discharge - Sign-Out/Discharge Documenting (check all that apply): Discharge - Discharge Plan Condition: Stable Disposition: HOME Patient Education Materials: Radial Nerve Palsy (ED) Referrals: Moni Flores MD [Primary Care Provider] - 3 Days Additional Instructions: RETURN TO THE EMERGENCY DEPARTMENT FOR CHANGING OR WORSENING SYMPTOMS. The documentation as recorded by the Mario lucero Stephanie accurately reflects the service I personally performed and the decisions made by Maria Dolores martins Jerry, MD.
== END 2018-02-16 18:00 | disposition home or self-care (01) ==
LOC: ED 14:08
DX: G56.30 Lesion of radial nerve, unspecified upper limb (principal); R53.1 Weakness; F17.210 Nicotine dependence, cigarettes, uncomplicated; R47.81 Slurred speech
CPT/HCPCS: 36415; 70450; 80053; 85027; 85610; 85730; 93005; 99282

== ENCOUNTER 2018-02-19 10:32 | Emergency (ER) | payer OTHER ==
[2018-02-19 10:56] VITALS: BP 138/82
[2018-02-19] MEDS ORDERED: predniSONE TAB* 20 MG PO ONE (11:28)
[2018-02-19] MEDS ORDERED: diPHENhydraMINE PO* 25 MG PO ONE (11:31)
--- NOTE | 2018-02-19 11:38 | UC ---
Skin Complaint HPI - HPI Summary HPI Summary: Patient was in the ER on 02/16/18, she received multiple venipunctures in the right hand and arm, she developed some itching while in the ER, since then, there has been increased sweeling and erythema of the right and and into the wrist. no axillary pain or swelling, bruising of the right anticubital fossa noted. - History of Current Complaint Chief Complaint: UCSkin Time Seen by Provider: 02/19/18 10:54 Stated Complaint: SKIN COMPLAINT Hx Obtained From: Patient Hx Last Menstrual Period: ablation 2010 ?: No Onset/Duration: Sudden Onset Skin Exposure Onset/Duration: Days Ago Timing: Constant Onset Severity: Moderate Current Severity: Moderate Pain Intensity: 0 Location: Discrete, Hand (Right) Character: Swelling, Pruritus, Redness, Painful Aggravating Factor(s): Nothing Alleviating Factor(s): Nothing Associated Signs & Symptoms: Positive: Rash, Bruising, Joint Swelling Related History: Possible Reaction to: Environmental Exposure - Allergy/Home Medications Allergies/Adverse Reactions: Allergies Allergy/AdvReac Type Severity Reaction Status Date / Time No Known Allergies Allergy Verified 02/16/18 12:14 Review of Systems Constitutional: Negative Skin: Rash, Bruising Eyes: Negative ENT: Negative Respiratory: Negative Cardiovascular: Negative Gastrointestinal: Negative Genitourinary: Negative Motor: Negative Neurovascular: Negative Musculoskeletal: Negative Neurological: Negative Psychological: Negative Is Patient Immunocompromised?: No All Other Systems Reviewed And Are Negative: Yes PMH/Surg Hx/FS Hx/Imm Hx Previously Healthy: Yes - Surgical History Surgical History: Yes Surgery Procedure, Year, and Place: ablation. Small Bowel Obstruction with surgery 2009. laparoscopy 1988. tubal 2006. lt breast biopsy at [facility] 11/26 - Family History Known Family History: Negative: Hypertension, Diabetes, Renal Disease, Respiratory Disease, Seizure Disorder, Blood Disorder - Social History Alcohol Use: None Alcohol Amount: since 12/2014 Substance Use Type: None Smoking Status (MU): Heavy Every Day Tobacco Smoker Type: Cigarettes Amount Used/How Often: 1 ppd Length of Time of Smoking/Using Tobacco: age 16 Have You Smoked in the Last Year: Yes Household Exposure Type: Cigarettes - Immunization History Most Recent Tetanus Shot: unknown Physical Exam Triage Information Reviewed: Yes Appearance: Well-Appearing, Well-Nourished, Pain Distress Vital Signs: Initial Vital Signs Temp 99.5 F 02/19/18 10:50 Pulse 64 02/19/18 10:50 Resp 18 02/19/18 10:50 BP 138/82 02/19/18 10:50 Pulse Ox 100 02/19/18 10:50 Vital Signs Reviewed: Yes Eye Exam: Normal ENT Exam: Normal Dental Exam: Normal Neck exam: Normal Neck: Positive: Supple, Nontender, No Lymphadenopathy, Enlarged Nodes @ Respiratory Exam: Normal Respiratory: Positive: Chest non-tender, Lungs clear, Normal breath sounds Cardiovascular Exam: Normal Cardiovascular: Positive: RRR, No Murmur, Pulses Normal Abdominal Exam: Normal Abdomen Description: Positive: Nontender, No Organomegaly, Soft Bowel Sounds: Positive: Present Neurological Exam: Normal Neurological: Positive: Alert, Muscle Tone Normal Psychological Exam: Normal Skin: Positive: Other - mild erythema on the wrist, more along the medial aspect of the right hand and into the pinky. 3 round blisters oozing a clear fluid. patient states it is very itchy. no lymphadenopathy of the axilla noted, old bruising of the anticubital fossa from venipuncture. Course/Dx - Course Course Of Treatment: hx obtained, exam performed ,med reviewed, treated for lymphagenitis and allergic reaction - Differential Diagnoses - Skin Complaint Differential Diagnoses: Allergic Reaction, Lymphangitis, Urticaria - Diagnoses Provider Diagnoses: lymphagenitis of the right hand. pruritis. swelling Discharge - Sign-Out/Discharge Documenting (check all that apply): Discharge - Discharge Plan Condition: Stable Disposition: HOME Prescriptions: DOXYcycline CAP(*) [DOXYcycline 100MG CAP(*)] 100 mg PO BID #14 cap predniSONE TAB* [Deltasone TAB*] 40 mg PO DAILY #14 tab Patient Education Materials: Lymphangitis (ED) Referrals: Moni Flores MD [Primary Care Provider] - Additional Instructions: 1.Take the medication as prescribed. 2. warm water soaks multiple times a day 3. If not improving in the next 24-48 hours, please follow up in the ER. - Billing Disposition and Condition Condition: STABLE Disposition: HOME
== END 2018-02-19 11:53 | disposition home or self-care (01) ==
LOC: UCEAST 10:32
DX: I89.1 Lymphangitis (principal); L29.9 Pruritus, unspecified; M79.89 Other specified soft tissue disorders; F17.210 Nicotine dependence, cigarettes, uncomplicated
CPT/HCPCS: 99212; A9270-GY; G0463; J7512

== ENCOUNTER 2019-06-22 08:17 | Observation (INO) | payer OTHER ==
--- NOTE | 2019-06-22 08:46 | ED ---
Neurological HPI - HPI Summary HPI Summary: Pt. is a 49 y.o female who presents to the ER with speech difficulty and facial droop. Pt. states she woke up with her symptoms around 0600 and then went back to sleep. Last known well was around 2230 last night when she went to sleep. Pt. has been seen in the ER for potential seizure/stroke/TIA in the past. Pt. states when she woke up she was unable to speak but knew what she wanted to say. Pt. also complains of a left lower facial droop. She denies numbness, tingling or weakness. Denies injury. Symptoms are severe in severity. No current modifying factors. - History of Current Complaint Chief Complaint: EDNeurologicalDeficit Stated Complaint: CANT TALK PER PT Time Seen by Provider: 06/22/19 08:31 Hx Obtained From: Patient Hx Last Menstrual Period: ablation 2009 Pain Intensity: 0 - Additional Pertinent History Primary Care Physician: SONAM - Allergy/Home Medications Allergies/Adverse Reactions: Allergies Allergy/AdvReac Type Severity Reaction Status Date / Time No Known Allergies Allergy Verified 06/22/19 09:23 PMH/Surg Hx/FS Hx/Imm Hx Previously Healthy: Yes Endocrine/Hematology History: Denies: Hx Diabetes, Hx Thyroid Disease Cardiovascular History: Reports: Hx Hypertension - highn b/p Denies: Hx Pacemaker/ICD Respiratory History: Denies: Hx Asthma, Hx Chronic Obstructive Pulmonary Disease (COPD) GI History: Denies: Hx Ulcer History: Denies: Hx Renal Disease Sensory History: Denies: Hx Contacts or Glasses, Hx Hearing Aid Opthamlomology History: Denies: Hx Contacts or Glasses Psychiatric History: Reports: Hx Panic Disorder - ANXIETY - Cancer History Cancer Type, Location and Year: cervical ca - Surgical History Surgery Procedure, Year, and Place: ablation. Small Bowel Obstruction with surgery 2009. laparoscopy 1988. tubal 2006. lt breast biopsy at [facility] 11/26 - Immunization History Date of Influenza Vaccine: Fall 2016 Infectious Disease History: No Infectious Disease History: Denies: Hx Hepatitis, Hx Human Immunodeficiency Virus (HIV), Traveled Outside the [place] in Last 30 Days - Family History Known Family History: Negative: Hypertension, Diabetes, Renal Disease, Respiratory Disease, Seizure Disorder, Blood Disorder - Social History Occupation: Unemployed Lives: With Family Alcohol Use: None Alcohol Amount: since 12/2014 Substance Use Type: Reports: None Smoking Status (MU): Heavy Every Day Tobacco Smoker Type: Cigarettes Amount Used/How Often: 1 ppd Length of Time of Smoking/Using Tobacco: age 16 Have You Smoked in the Last Year: Yes Review of Systems Constitutional: Negative Eyes: Negative ENT: Negative Cardiovascular: Negative Respiratory: Negative Gastrointestinal: Negative Genitourinary: Negative Musculoskeletal: Negative Skin: Negative Positive: Weakness, Slurred Speech All Other Systems Reviewed And Are Negative: Yes Physical Exam Triage Information Reviewed: Yes Vital Signs On Initial Exam: Initial Vitals Temp Pulse Resp BP Pulse Ox 98.4 F 79 22 212/97 98 06/22/19 08:19 06/22/19 08:19 06/22/19 08:19 06/22/19 08:19 06/22/19 08:19 Vital Signs Reviewed: Yes Appearance: Positive: Well-Appearing - Pt. lying in bed, crying. Appears very anxious. Skin: Positive: Warm, Dry Head/Face: Positive: Other - Left lower face appears to be drooping. Eyes: Positive: Normal, EOMI, TOM, Conjunctiva Clear Neck: Positive: Supple. Negative: Nuchal Rigidity Respiratory/Lung Sounds: Positive: Clear to Auscultation, Breath Sounds Present Cardiovascular: Positive: Normal, RRR Musculoskeletal: Positive: Normal, Strength/ROM Intact Neurological: Positive: Normal, Sensory/Motor Intact, Alert, Oriented to Person Place, Time, CN Intact II-III Psychiatric: Positive: Affect/Mood Appropriate Diagnostics - Vital Signs Vital Signs Temp Pulse Resp BP Pulse Ox 06/22/19 08:19 98.4 F 79 22 212/97 98 - Laboratory Result Diagrams: 06/22/19 08:40 06/22/19 08:40 Lab Statement: Any lab studies that have been ordered have been reviewed, and results considered in the medical decision making process. NIH Scale - NIH Scale Level of Consciousness: Alert/Keenly Responsive Ask Patient the Month and His/Her Age: Both Correct Ask Pt to Open/Close Eyes and Emergency Care Attendant/Release Non-Paretic Hand: Both Correctly Best Gaze (Only Horizontal Eye Movement): Normal Visual Field Testing: No Visual Loss Facial Paresis-Pt to Smile & Close Eyes or Grimace Symmetry: Minor Paralysis Motor Function - Right Arm: No Drift-Holds 10 Seconds Motor Function - Left Arm: No Drift-Holds 10 Seconds Motor Function - Right Leg: No Drift-Holds 10 Seconds Motor Function - Left Leg: No Drift-Holds 10 Seconds Limb Ataxia-Must be out of Proportion to Weakness Present: Absent Sensory (Use Pinprick to Test Arms/Legs/Trunk/Face): Normal Best Language (Describe Picture, Name Items): No Aphasia Dysarthria (Read Several Words): Slurs Some Words Extinction and Inattention: No Abnormality Total Score: 2 Course/Dx - Course Course Of Treatment: Pt. presenting with let lower facial droop and slurred speach. Pt. initially hypertensive. Pt. woke up with her symptoms. NIH score of 2. COde mckeon called. Pt. Examined Dr. Landa, neurology. He states pt. is not a TPA canidate given outside window and NIHS. Head CT negative for acute findings. Labs unremarkable. Dr. Landa would like pt. admitted for MRI and further evaluation. Case discussed with Dr. Kaplan, hospitalist, and he will accept pt. to his service. ECG done at 0846 shows a sinus rhythm of 62bpm, normal axis, no STEMI. - Differential Dx Differential Diagnoses Neuro: Positive: Anxiety, Cerebrovascular Accident, Transient Ischemic Attack - Diagnoses Provider Diagnoses: Facial droop, Slurred speech Discharge - Sign-Out/Discharge Documenting (check all that apply): Patient Departure Patient Received Moderate/Deep Sedation with Procedure: No - Discharge Plan Condition: Stable Disposition: ADMITTED TO [facility] Referrals: Moni Flores MD [Primary Care Provider] - - Billing Disposition and Condition Condition: STABLE Disposition: Admitted to [facility]
[2019-06-22 08:52] LABS: ABS Basophils 0.1 10^3/ul (0-0.2); ABS Eosinophils 0.3 10^3/ul (0-0.6); ABS Lymphocytes 3.5 10^3/ul (1.0-4.8); ABS Monocytes 0.8 10^3/ul (0-0.8); ABS Neutrophils 7.9 10^3/ul (1.5-7.7); Eosinophil % 2.6 %; Hematocrit 42 % (35-47); Hemoglobin 14.9 g/dL (12.0-16.0); Lymphocyte % 27.5 %; Mean Corpuscular HGB Conc 35 g/dL (31-36); Mean Corpuscular Hemoglobin 32 pg (27-31); Mean Corpuscular Volume 92 fL (80-97); Mean Platelet Volume 7.8 fL (7.4-10.4); Platelet Count 255 10^3/uL (150-450); Red Blood Count 4.59 10^6 /uL (3.70-4.87); Red Cell Distribution Width 13 % (10-15); White Blood Count 12.7 10^3/uL (3.5-10.8)
[2019-06-22 09:01] LABS: Activated Partial Thrombo Time 29.1 seconds (26.0-38.0); INR 0.97 (0.82-1.09)
[2019-06-22 09:11] LABS: Albumin 4.3 g/dL (3.2-5.2); Albumin/Globulin Ratio 1.4 (1-3); BUN/Creatinine Ratio 17.1 (8-20); Calcium 9.1 mg/dL (8.6-10.3); EGFR African American 108.5 (>60); EGFR Non-African American 89.7 (>60); Globulin 3.1 g/dL (2-4); HDL Cholesterol 50.3 mg/dL; Potassium 4.2 mmol/L (3.5-5.0); Total Bilirubin 0.2 mg/dL (0.2-1.0); Total Protein 7.4 g/dL (6.4-8.9)
[2019-06-22 09:12] LABS: Troponin I 0.03 ng/mL (<0.04)
[2019-06-22] MEDS ORDERED: Aspirin 81 mg CHEW TAB* 81 MG TAB.CHEW PO ONE (09:33)
[2019-06-22] MEDS ORDERED: Aspirin TAB* 325 MG PO ONE (09:33)
[2019-06-22 10:54] LABS: TSH (Thyroid Stimulating Horm) 0.95 mcIU/mL (0.34-5.60)
[2019-06-22] MEDS ORDERED: Acetaminophen TAB* 325 MG PO PRN (12:05)
--- NOTE | 2019-06-22 12:17 | CONS ---
NEUROLOGY CONSULTATION REPORT: DATE OF CONSULT: 06/22/19 CONSULTING PROVIDER: Sagrario babb for urgent neurological evaluation for possible stroke, consulted by Dr. Miller. The history was obtained by patient's fiance. CHIEF COMPLAINT: Slurred speech and right facial droop. HISTORY OF PRESENT ILLNESS: Mrs. 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 The patient was last known well last night on 06/21/19. She woke up at 6 a.m. and noticed that she has had mild right facial weakness. She noticed tingling in the bottom of her lip on the right side, but then stated that she also had numbness and tingling on the left side of the lip. She went back to sleep and woke up again at 7 a.m. She was trying to drink her coffee, but could not swallow. She did not choke or cough, but she was just having trouble putting the liquids in her mouth and trying to swallow it. She had saliva coming out of her mouth. She went to her fiance who realized that he was not understanding what she was saying. She was slurring her speech. That is when the patient became extremely concerned and EMS was contacted. On arrival, the patient does have evidence of mild right facial droop and slurred speech. NIH stroke scale of 2. CT of the head was urgently obtained and showed no evidence of acute intracranial abnormality. I personally reviewed the study. The patient's systolic blood pressure was extremely elevated at 210 upon arrival. With reassurance, her blood pressure improved. Initially, the patient was crying and extremely anxious. The patient also is complaining of bilateral ear pain. She has diagnosis of psoriasis in her inner ear. She follows up with an ENT specialist. 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 HOME MEDICATIONS: 1. Amlodipine 2.5 mg daily. 2. Vitamin D 2000 units p.o. daily. 3. Lisinopril 20 mg p.o. daily. ALLERGIES: No known drug allergies. FAMILY HISTORY: There is no family history of stroke or seizures. SOCIAL HISTORY: The patient smokes one pack per day for 20 years. She denied any alcohol use. She denied any recreational drug use. REVIEW OF SYSTEMS: A 14-point review of system was obtained and otherwise negative except what was mentioned in the HPI. PHYSICAL EXAM: Vitals: Temperature of 98.4, pulse of 64, respiratory rate of 20, oxygen saturation 98, blood pressure of initially 212/97, but currently 151/ 79. General: A well-nourished, well-developed female, who is extremely anxious and crying during the interview. Head: Atraumatic and normocephalic without any obvious abnormality. Eyes: Conjunctiva/corneas are clear. Neck is supple and symmetrical with no carotid bruit. No lymphadenopathy. Respiratory: Clear to auscultation bilaterally with no wheezing or rhonchi. Cardiac: Regular rate and rhythm with normal S1 and S2. Extremities: Normal range of motion with no cyanosis. She has no hammertoes or high arches. Skin: No skin lesions or laceration. She does have some psoriasis and skin changes in the inner ear bilaterally. Psych: Extremely anxious, broad affect and slightly depressed mood, crying during the interview, initially difficult to obtain rapport, but with reassurance, she was able to calm down and provide history. The patient was provided with a bag to breathe in as she was hyperventilating. Again, this resolved after a few minutes of the interview. Neurological Examination: Mental Status: Awake, alert, and oriented to person , place, time, and general circumstance. Speech and language including repetition, comprehension, and expression were assessed and found to be normal except for she does have mild slurred speech. This is new according to her fiance. Cranial Nerves: Pupils equal, round and reactive to light, extraocular muscles are intact, normal confrontation testing, sensation is intact on both sides of face, right facial droop in upper motor neuron pattern. There is some inconsistency with the facial droop, but overall there is definitely evidence of facial asymmetry. She is able to hear throughout the history taken. Tongue is symmetric and midline with no atrophy or fasciculation. Motor examination normal tone and bulk. No pronator drift. A 5 /5 strength in the upper and lower extremities bilaterally. Reflexes 2+ in the biceps, triceps, brachioradialis, knees, and 1+ at the ankles bilaterally. Downgoing plantar responses. Coordination: Normal [id number] and heel-to- serna testing. Sensation is intact to light touch and temperature sensation in all throughout and symmetrically. Normal vibration at the toes. Gait was not assessed at this time due to the acuity of her symptoms and her elevated blood pressure. DIAGNOSTIC STUDIES/LAB DATA: WBC of 12.7, hemoglobin of 14.9, hematocrit of 42 , platelet count of 255. INR is 0.97. Sodium of 137, potassium 4.2, chloride of 106, creatinine of 0.70, lactic acid 1.4. Calcium 9.1, TSH and B12 are pending. A CT head without contrast showed no acute intracranial abnormality. ASSESSMENT: Mrs. Madison Manley is a 49-year-old female with history of hypertension, anxiety disorder, who presented with a panic attack associated with right facial droop and slurred speech. 1. Acute onset right facial droop and slurred speech. The differential diagnosis here is possible left cortical infarct in the precentral gyrus involving the facial homunculus. Hypertensive encephalopathy or PRES could also be on the differential. Other differential diagnosis include functional disorder, however, given the patient's risk factors of tobacco use and hypertension, and her fixed facial droop on the right, functional disorder is low on the differential. NIH stroke scale was 2. She is not a candidate for IV tPA as she woke up with the symptoms. She is less likely to have large vessel occlusion and therefore, CTA was not ordered due to the low NIH stroke scale. 2. Hypertensive urgency. 3. Generalized anxiety disorder. RECOMMENDATIONS: Admit to the hospital service. Neuro checks every 4 hours. Consult SETTLEMENT WORKER. Start aspirin 325 x1 once she passes the dysphagia screen and then continue aspirin 81 mg daily starting tomorrow. If there is evidence of stroke on MRI, then I would add Plavix for a total of 21 days. I started the patient on atorvastatin 80 mg nightly. Allow permissive hypertension, but treat systolic blood pressure greater than 200. I ordered an MRI of the brain, MRA head, MRA neck without contrast to evaluate for stroke. Also, I ordered transthoracic echo with bubble study to look for PFO. Discussed stroke education with the patient and and informed them that we presume that this she may be having a small stroke and further testing is required at this time to understand the disease process as well as the cause of the stroke if this is positive. If her symptoms recover within the next 24 hours, then her presentation could also may be TIA. No need for anticoagulation therapy since the patient does not have any atrial fibrillation. DVT prophylaxis with SCDs and early ambulation. CRITICAL CARE TIME: Forty five minutes. [id number]/[facility] #: [id number] ADDENDUM: MRI brain showed evidence of left MCA vascular territory ischemic stroke and a punctate infarct in the right parietal lobe. I suspect a cardio embolic etiology. She is afebrile. She was not a candidate for IV tPA since she woke up with the symptoms. There is no evidence of large vessel occlusion. 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 She will need a neurovascular consultation and close monitoring in the near future (within 2-3 months). There is an old punctate infarct in the left cerebellar hemisphere. TERELL
[2019-06-22] MEDS: Lisinopril TAB* 10 MG PO SCH (12:19)
[2019-06-22] MEDS: amLODIPine TAB* 5 MG PO SCH (12:19)
[2019-06-22] MEDS ORDERED: Enoxaparin(*) 40 MG/0.4 ML SYR SUBCUT SCH (13:00)
--- NOTE | 2019-06-22 13:42 | HP ---
CC: Dr. Flores * HISTORY AND PHYSICAL: DATE OF ADMISSION: 06/22/19 PROVIDER: Windy Schuler NP. PRIMARY CARE PROVIDER: Dr. Flores. ATTENDING PHYSICIAN WHILE IN THE HOSPITAL: Dr. Randy Kaplan * (dictated by Windy Schuler NP). CHIEF COMPLAINT: Slurred speech, left lip numbness. HISTORY OF PRESENT ILLNESS: Ms. Manley is a 49-year-old female with a past medical history significant for hypertension and anxiety, who presented to the emergency room with the complaints of left lower lip numbness and slurred speech. The patient reports that she went to bed at 10:30 last p.m., she had no complaints, was in her normal state of health. She woke at 6 a.m., unable to talk, having slurred speech and left lower lip numbness. She reports that she was unable to drink her coffee or eat. Due to these symptoms, the patient presented to the emergency room for further evaluation. While in the emergency room, ryan babb was called. She had a CT of the head, which showed no acute intracranial abnormality and chronic left maxillary sinusitis. The patient was seen by Neurology, Dr. Landa, who ordered MRA and MRIs of the brain and neck. Due to her continued slurred speech and rule out TIA versus CVA, Hospital Medicine was asked to see and evaluate her for admission. PAST MEDICAL HISTORY: 1. Hypertension. 2. Anxiety. PAST SURGICAL HISTORY: Bowel resection. HOME MEDICATIONS: Include: 1. Lisinopril 20 mg p.o. daily. 2. Amlodipine 2.5 mg p.o. daily. 3. Vitamin D 2000 units p.o. daily. 4. The patient also reports that she takes a med for anxiety that starts with an H, unsure of the medication. ALLERGIES: No known drug allergies. FAMILY HISTORY: The patient reports her mother from COPD when the patient was 7 years old. Unknown history from father or grandparents. SOCIAL HISTORY: The patient has smoked half a pack a day since the age of 13. Does report occasional alcohol use. No illicit drug use. Surrogate decision maker in the event she is unable to make her own decisions is her domestic partner Michele Hodges. She is a full code. REVIEW OF SYSTEMS: She denies any recent illnesses. No fever or chills. No chest pain or edema. No cough, hemoptysis, or shortness of breath. No nausea, vomiting, diarrhea or abdominal pain, hematuria or dysuria. She does report left lower lip numbness, slurred speech. She denies any weakness in her arms or legs. Denies any dizziness. She does report a left-sided headache. She denies any visual changes. She denies trouble swallowing. No arthralgias, myalgias, rashes, lesions, opens sores, psychosis, or anxiety. PHYSICAL EXAMINATION GENERAL: At this time, Ms. Manley is alert and oriented. She is tearful, sitting in her hospital room bed. Her speech is slurred but able to understand. She is well nourished, well developed. HEENT: Head is atraumatic, normocephalic. Eyes: EOMs are intact. Sclerae anicteric and not pale. Oral mucosa appeared to be moist. NECK: Supple. LUNGS: Clear to auscultation bilaterally. No wheezes, rales, or rhonchi. CARDIAC: S1, S2. Regular rate and rhythm. No murmurs, rubs, or gallops. ABDOMEN: Soft and nontender. Bowel sounds are present x4. EXTREMITIES: She is able to move all 4 extremities. Handgrips are equal. Push - pull is equal. Pedal pulses are +2 bilaterally. NEUROLOGIC: She is awake, alert, oriented x3. Speech is slurred. She does have a left facial droop. Tongue is midline. Handgrips are equal. Push-pull is intact. [id number] is intact. There is no pronator drift, no leg drift. Sensation is intact in all 4 extremities. No decreased sensation noted to the face. Smile is unequal. SKIN: Intact. DIAGNOSTIC STUDIES/LAB DATA: WBCs are 12.7, RBCs 4.59, hemoglobin 14.9, hematocrit 42, platelet count 255. INR was 0.97. Sodium 137, potassium 4.2, chloride 106, carbon dioxide was 21, anion gap of 10, BUN was 12, creatinine 0.70, glucose 113, lactic acid 1.4, calcium 9.1. AST was 15, ALT was 16, alkaline phosphatase was 79. Cholesterol 195, LDL was 117, HDL was 50.3. TSH was 0.95. She had a CT of the brain: 1. No acute intracranial abnormality. 2. Chronic left maxillary sinusitis. She had an electrocardiogram which showed sinus rhythm, no ST or T-wave changes , at a rate of 62, QTc was 421. She had an MRI of the brain, radiologist's impression: 1. There is an acute infarct along the posterolateral left frontal lobe with no hemorrhage or significant mass effect, a small component extends into the left precentral gyrus. 2. Old punctate infarct at the left cerebellar hemisphere. 3. 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 No acute occlusive disease is seen or significant stenosis of the brain. No acute disease or significant stenosis of the major vessels of the neck. ASSESSMENT AND PLAN: Ms. Manley is a 49-year-old female with past medical history significant for hypertension and anxiety, who presented to the emergency room with slurred speech and left lower lip numbness. She will be admitted under observation for: 1. Cerebrovascular accident. The patient was a code babb on presentation to the emergency room. She had a CT of the brain that was negative. She had an MRI that shows an acute infarct. She will be placed on neuro checks. I will get a transthoracic echocardiogram with bubble study. She will be placed on atorvastatin 80mg. She has already had a lipid profile. We will control her blood pressure. She had aspirin 325 mg. I will continue her on aspirin 81 mg p.o. daily. Neuro checks q.2 hours. She will have PT and OT eval and speech therapy/swallow eval. Dr. Landa from Neurology was consulted and has seen the patient will follow along with this patient. Will allow for permissive hypertension as per neurology recommendation and treat SBP greater 200. 2. Hypertension. She will continue on lisinopril and amlodipine as previously prescribed. 3. FEN: She can have a regular diet. 4. Code status: She is a full code. 5. DVT prophylaxis: I will place her on SCD's. TIME SPENT: Time spent on this admission was approximately 60 minutes, greater than half that time was spent at the bedside reviewing events leading thus far to her hospitalization, performing physical exam, and reviewing my plan of care. I have discussed this with my attending Dr. Randy Kaplan; he is in agreement with my plan. WINDY SCHULER, CLIENT HR MANAGER [id number]/[facility] #: [id number] [facility] HOSPITALArtem
[2019-06-22] MEDS ORDERED: Perflutren Lipid Microsphere* 3 ML VIAL ONE (14:20)
--- NOTE | 2019-06-22 16:26 | ECHO ---
*[facility]* [place] [address] Fax #: [phone] Transthoracic Echocardiogram Patient: Madison Manley : 1970 Study Date: 06/22/2019 Age: 49 Gender: F HR: 53 bpm Height: 67 in /170.2 cm BSA: 1.92 m^2 Weight: 177.6 lb /80.7 kg BMI: 27.9 kg/m^2 *Customer Support Professional: * Denae Salazar RDCS RN *Referring Physician: * Brianne Landa *Reading Physician: * Hayes Palm MD Indications: CVA. History: Aortic stenosis. Risk factors: Current tobacco use. Hypertension. Obese. Conclusions Summary: - Impressions: The study is unchanged since the study of December 2017. - Left atrium: The atrium is mildly dilated. - Atrial septum: Bubble study was negative - Aortic valve: A bicuspid morphology cannot be excluded. There is fusion of the left-noncoronary commissure. The findings are consistent with mild stenosis. There is mild regurgitation. The peak systolic velocity is 2.6 m/sec. The mean systolic gradient is 14.0 mm Hg. The peak systolic gradient is 27.0 mm Hg. The LVOT to aortic valve VTI ratio is 0.55. The valve area by the velocity-time integral method is 1.73 cm^2. The valve area by the peak velocity method is 1.49 cm^2. Recommendations: Consider transesophageal echocardiogram if there is a high clinical suspicion for a cardioembolic source. Study data: Transthoracic echocardiogram. Procedure: Transthoracic echocardiography was performed. Image quality was fair. The study was technically limited due to body habitus and smoking history. Intravenous Definity 4 ml was administered for image enhancement. A bubble study was performed using agitated saline. Images 121 and 122. Complete 2D, spectral Doppler, and color flow Doppler. Location: Bedside. Patient status: Observation. Patient room number: 433. The previous study was not available, so comparison is made to the report of December 2017. Rhythm: Sinus Bradycardia with occasional PVCs. Findings Left ventricle: The cavity size is normal. Wall thickness is mildly increased. Systolic function is normal. The estimated ejection fraction is 55-60%. Wall motion is normal; there are no regional wall motion abnormalities. Left ventricular diastolic function parameters are indeterminate. Right ventricle: The cavity size is normal. Systolic function is normal. Left atrium: The atrium is mildly dilated. Right atrium: The atrium is normal in size. Atrial septum: No defect or patent foramen ovale is identified. Bubble study was negative Mitral valve: The leaflets are mildly thickened. There is no evidence of stenosis. There is trace regurgitation. Aortic valve: A bicuspid morphology cannot be excluded. There is fusion of the left-noncoronary commissure. Moderate focal thickening and calcification involving the left coronary and noncoronary cusp. Left coronary cusp mobility is restricted. The findings are consistent with mild stenosis. There is mild regurgitation. Tricuspid valve: The valve is structurally normal. There is no evidence of stenosis. There is trace regurgitation. Pulmonic valve: Not well visualized. There is no evidence of stenosis. There is no significant regurgitation. Aorta: Aortic root: The aortic root is not dilated. Ascending aorta: The ascending aorta is not dilated. Aortic arch: The aortic arch is not dilated. Pericardium: There is no pericardial effusion. Pulmonary arteries: Not well visualized. Systolic pressure can not be accurately estimated. Systemic veins: Inferior vena cava: The vessel is normal in size. There is (>= 50%) respiratory change in the IVC dimension. Measurements Left ventricle Value Ref Aortic valve Value Ref LEDA, LAX 4.4 cm 3.8 - Carter diam, ED 2.1 cm ---- 5.2 Peak v, S 2.6 m/sec ---- ESD, LAX 3.1 cm 2.2 - VTI, S 53.7 cm ---- 3.5 Mean grad, S 14.0 mm Hg ---- FS, LAX 30 % 27 - 45 Peak grad, S 27.0 mm Hg ---- PW, ED (H) 1.1 cm 0.6 - LVOT/AV, VTI ratio 0.55 ---- 0.9 HAYDEN, VTI 1.73 cm^2 ---- IVS/PW, ED 0.98 -------- HAYDEN, Vmax 1.49 cm^2 ---- E', lat carter, TDI (L) 7.8 cm/sec >=10.0 AR peak v 4.63 m/sec -- -- E/e', lat carter, TDI 10 -------- AR PHT 760 ms ---- E', med carter, TDI (L) 6.1 cm/sec >=7.0 AR peak grad 86 mm Hg -- -- E/e', med carter, TDI 13 -------- E', avg, TDI 7.0 cm/sec -------- Mitral valve Value Ref E/e', avg, TDI 11 <=14 Peak E 0.8 m/sec -- -- Peak A 0.97 m/sec ---- LVOT Value Ref Decel time 271 ms ---- Diam, S 2.00 cm -------- Peak grad, D 2.5 mm Hg ---- Area 3.1 cm^2 -------- Peak E/A ratio 0.8 ---- Peak prudence, S 1.23 m/sec -------- VTI, S 29.6 cm -------- Pulmonic valve Value Ref Peak grad, S 6 mm Hg -------- Peak v, S 0.93 m/sec ---- Mean grad, S 4 mm Hg -------- Peak grad, S 3.0 mm Hg ---- SV 93 ml -------- SV/bsa 48 ml/m^2 -------- Aortic root Value Ref Root diam 3.2 cm <4.1 Ventricular septum Value Ref IVS, ED (H) 1.1 cm 0.6 - Ascending aorta Value Ref 0.9 AAo AP diam, S 3.2 cm ---- Right ventricle Value Ref Aortic arch Value Ref LEDA, LAX 2.9 cm -------- Arch diam 2.7 cm ---- LEDA minor ax, A4C 3.2 cm 1.9 - mid 3.5 Decending aorta Value Ref Jose peak prudence 1.08 m/sec ---- Left atrium Value Ref ML dim, A4C 4.1 cm -------- Inferior vena cava Value Ref SI dim, A4C 4.7 cm -------- Diam 1.7 cm ---- Vol/bsa, ES, 1-p 31 ml/m^2 11 - 40 A4C Vol/bsa, ES, A/L (H) 36 ml/m^2 16 - 34 Right atrium Value Ref ML dim, ES, A4C 3.5 cm 2.6 - 4.4 SI dim, ES, A4C 4.5 cm 3.4 - 5.3 Estimated RAP 3 mm Hg -------- Legend: (L) and (H) romaine values outside specified reference range. Prepared and electronically signed by Hayes Palm MD 06/22/2019 16:26
[2019-06-22] MEDS ORDERED: Atorvastatin* 80 MG TAB PO SCH (17:00)
[2019-06-22 18:35] LABS: Urine Appearance Cloudy; Urine Bilirubin Negative (Negative); Urine Blood Negative (Negative); Urine Color Yellow; Urine Glucose Negative (Negative); Urine Ketones Negative (Negative); Urine Nitrite Negative (Negative); Urine Protein Negative (Negative); Urine Urobilinogen Negative (Negative)
[2019-06-23 06:47] LABS: ABS Eosinophils 0.4 10^3/ul (0-0.6); ABS Lymphocytes 4.4 10^3/ul (1.0-4.8); ABS Monocytes 0.8 10^3/ul (0-0.8); ABS Neutrophils 5.3 10^3/ul (1.5-7.7); Eosinophil % 3.3 %; Hematocrit 40 % (35-47); Hemoglobin 14.2 g/dL (12.0-16.0); Lymphocyte % 40.4 %; Mean Corpuscular HGB Conc 35 g/dL (31-36); Mean Corpuscular Hemoglobin 33 pg (27-31); Mean Corpuscular Volume 93 fL (80-97); Nucleated Red Blood Cells % 0.1; Platelet Count 245 10^3/uL (150-450); Red Blood Count 4.34 10^6 /uL (3.70-4.87); Red Cell Distribution Width 13 % (10-15); White Blood Count 10.9 10^3/uL (3.5-10.8)
[2019-06-23 06:56] LABS: BUN/Creatinine Ratio 14.3 (8-20); Calcium 9.2 mg/dL (8.6-10.3); EGFR African American 122.6 (>60); EGFR Non-African American 101.3 (>60); Potassium 3.8 mmol/L (3.5-5.0)
[2019-06-23] MEDS ORDERED: Aspirin EC TAB* 81 MG TAB.EC PO SCH (09:00)
[2019-06-23] MEDS ORDERED: Cholecalciferol TAB* 1000 UNITS PO SCH (09:00)
[2019-06-23] MEDS: amLODIPine TAB* 5 MG PO SCH (09:36)
[2019-06-23] MEDS: Lisinopril TAB* 10 MG PO SCH (09:36)
[2019-06-23 11:58] VITALS: BP 132/71
--- NOTE | 2019-06-23 13:33 | PN ---
Subjective Date of Service: 06/23/19 Interval History: Ms. Manley reports that she is doing well today. She thinks that her speech has improved. She denies any new neurological symptoms. She further denies chest pain or SOB. She and her partner are happy with the plan for discharge. Objective Active Medications: Acetaminophen (Tylenol Tab*) 650 mg PO Q4H PRN Amlodipine Besylate (Norvasc Tab*) 2.5 mg PO DAILY GREGG Aspirin (Aspirin Ec Tab*) 81 mg PO DAILY GREGG Atorvastatin Calcium (Lipitor*) 80 mg PO 1700 GREGG Cholecalciferol (Vitamin D Tab*) 2,000 units PO DAILY GREGG Lisinopril (Prinivil Tab*) 20 mg PO DAILY GREGG Vital Signs: Temp Pulse Resp BP Pulse Ox 97.8 F 57 16 132/71 96 06/23/19 11:29 06/23/19 11:29 06/23/19 11:29 06/23/19 11:29 06/23/19 11:29 Oxygen Devices in Use Now: None Appearance: Female sitting up in bed, partner at bedside in NAD Eyes: No Scleral Icterus Ears/Nose/Mouth/Throat: Mucous Membranes Moist Neck: Trachea Midline Respiratory: Symmetrical Chest Expansion and Respiratory Effort, Clear to Auscultation Cardiovascular: NL Sounds; No Murmurs; No JVD, No Edema Abdominal: NL Sounds; No Tenderness; No Distention Extremities: No Edema Skin: No Rash or Ulcers Neurological: Alert and Oriented x 3, - - Left sided mouth droop, slurred speech but to ennunciate well enough to communicate easily Nutrition: Taking PO's Result Diagrams: 06/23/19 05:28 06/23/19 05:28 Assess/Plan/Problems-Billing Assessment: Ms. Manley is a 49 yo F with a PMH of smoking who was admitted on 06/22/19 with slurred speech and facial droop found to have CVA. - Patient Problems (1) CVA (cerebral vascular accident) Comment: - Symptoms have improved mildly - Appreciate neurology consult - MRI/MRA brain/neck with acute infarct along the posteriolateral left frontal lobe. 4.3 mm aneurysm to R MCA. - Echo unchanged since 2018, no evidence of thrombus or PFO. - LLD 117, HDL 50. - No events noted on telemetry - Cause of CVA unclear though patient has risk factors of smoking and hypertension. - Continue aspirin and statin (started this admission) - Plan for outpatient follow up with Dr Ingram (neurosurgery). Plan for transthoracic echo and loop recorder (Dr. Bah in [place]). Plan for hypercoagulable workup (Dr Flores, PCP). (2) Hypertension Comment: - SBP 130s - Continue amlodipine and lisinopril Status and Disposition: OBV. Discharge to home.
--- NOTE | 2019-06-23 16:22 | PN ---
NEUROLOGICAL FOLLOWUP: DATE OF SERVICE: 06/23/19 - ROOM #433 PATIENT OF: Agnes Pappas NP; Dr. Landa; and Dr. Flores. HISTORY: This is a neurological followup on this 49-year-old right-handed woman , who still has some mildly hesitant and slurred speech. Today, there is no weakness. She feels somewhat better than yesterday and is able to walk and get around and is not confused. MEDICATIONS: Now include: 1. Norvasc 2.5 daily. 2. Aspirin 81 mg daily. 3. Lipitor 80 mg daily. 4. Lisinopril 20 mg daily. PHYSICAL EXAMINATION: Temperature 97.8, pulse 57, respirations 16, blood pressure 132/71. She is alert and oriented with slightly slurred speech, but naming intact. Cranial nerves II through XII were intact. She did have slight asymmetry of her face and that her depressor anguli area of her mouth on the right was mildly decreased. Strength 5/5. No pronator drift. Sensation intact to light touch. Chest: Clear. Cardiovascular: Regular rate and rhythm. Abdomen is soft. DIAGNOSTIC STUDIES/LAB DATA: Her MRI scan showed a stroke in her left posterior frontal lobe that was acute without mass effect. There is a small lacunar left cerebral hemispheric stroke. There was 4 x 3 mm aneurysm at the bifurcation of her right MCA. She had normal MRA of the head and neck otherwise for stenosis. Her echo showed no clear cause of source of clot. Her blood work showed a normal CBC, INR, PTT. BMP was normal today. She had normal B12, thyroid. Her LDL was 117, and statin was begun. IMPRESSION AND PLAN: Madison has new onset of stroke and it is possible that her cardiovascular risk factors including hypertension, mild hyperlipidemia and smoking was the cause, although her MRA showed no atherosclerotic disease. It will be important to rule out other causes in this situation and we will be sending off her hypercoagulable workup and also doing a TE echo and loop recorder monitoring. She will be on aspirin. I have discussed with the family the issue of the aneurysm and I will have her see Dr. Ingram as an outpatient for this and I will have her just on aspirin at this point to weigh risks and benefits. I discussed with her that she needs to quit smoking. I also discussed with her and the family because they had asked about her prior episode of right arm stiffness that she had an MRI scan at that point and did not show evidence of stroke. She also had an episode about a year ago of her left arm that was consistent with a radial nerve palsy according to the neurologist at that time. She will need to be followed by Neurology in the next month or two. Thank you for sharing her case. [id number]/[facility] #: [id number] TERELL
--- NOTE | 2019-06-23 16:22 | DS ---
CC: Dr. Moni Flores; Dr. Saundra Bah * [facility] MEDICINE DISCHARGE SUMMARY: DATE OF ADMISSION: 06/22/19 DATE OF DISCHARGE: 06/23/19 PRIMARY CARE PHYSICIAN: Dr. Moni Flores. STENCIL SPRAYER: Dr. Saundra Bah. ATTENDING PHYSICIAN: Dr. Randy Kaplan * (dictation provided by Agnes Pappas NP). PRIMARY DIAGNOSES: 1. Cerebrovascular accident with acute infarct noted to the posterolateral left frontal lobe. 2. Hypertension. 3. Smoking. MEDICATIONS: Today are: 1. Lisinopril 20 mg p.o. daily. 2. Cholecalciferol 2000 units p.o. daily. 3. Amlodipine 2.5 mg p.o. daily. 4. Atorvastatin 80 mg p.o. daily. 5. Aspirin 81 mg p.o. daily. HOSPITAL COURSE: Ms. Manley is a 49-year-old female with a past medical history of hypertension and smoking who presented to the hospital on 06/22/19 with concern for left-sided facial droop and slurred speech. Please see the dictated H and P from Windy Schuler NP, for complete details. In brief, Ms. Manley states that she went to bed the night before with no complaints, but awoke at 6:00 a.m. having trouble speaking. She had a CT brain in the emergency room that showed no acute intracranial abnormality. She was seen by Dr. Landa, who ordered MRA and MRI of the brain and neck. Because of the unknown time of onset, she was not a candidate for tPA. Ms. Manley was admitted to hospital. The remainder of her workup includes labs which were essentially normal. Her LDL was 117, HDL 50. She had a mildly elevated white blood cell count initially to 12.7 but on redraw was10.9. Urine showed no evidence of infection. She went on for the MRI of the brain with the head and neck MRA and the results of that are follows: "There is an acute infarct along the posterolateral left frontal lobe with no hemorrhage or significant mass effect. A small component extends the left precentral gyrus. Old punctate infarct in the left cerebral hemisphere. A 4.3 mm laterally directed aneurysm extends from the bifurcation of the right MCA. No acute occlusive disease or significant stenosis in the brain. No acute disease or significant stenosis in the major vessels of the neck." The patient had a transthoracic echocardiogram that states: "The study is unchanged since the study of December 2017. The left atrium is mildly dilated. The bubble study was negative. For the aortic valve, the bicuspid morphology cannot be excluded. Ejection fraction is 55% to 60%." EKG showed no evidence of ischemia with a normal rhythm and rate. She has been started on aspirin and statin, but plavix has been held per Dr. Samuels out of concern for the small aneurysm. Ms. Manley states that she has been little bit better. Her speech is slightly clear, although she continues to have some slurring and left-sided facial droop. She is recommended per Dr. Samuels to follow up with Dr. Ingram from Neurosurgery in [place] regarding the small aneurysm seen on MRA. She is recommended to follow up with her dinkey engine firer/fireman, Dr. Saundra Bah, for loop recorder placement and transesophageal echocardiogram. She is recommended to follow up with Dr. Flores for hypercoagulable workup, and finally, she is recommended to follow up with Speech Therapy. I have spoken at length with Ms. Manley about smoking cessation and encouraged her strongly to work towards quitting smoking and provided her with resources for the [facility] Quitline and for [facility] for Healthy Living. Ms. Manley is medically stable for discharge to home, to follow up as noted above. DISPOSITION: To home. DIET: Low fat, low salt. ACTIVITY: As tolerated. FOLLOWUP PLANS: 1. Please follow up with Speech Therapy. 2. Please follow up with Dr. Flores regarding hypercoagulable workup and this new CVA. 3. Please follow up with Dr. Ingram from Neurosurgery regarding the small aneurysm seen on MRA of the brain. 4. Please follow up with Dr. Saundra Bah regarding loop recorder and transesophageal echocardiogram. TIME SPENT: Approximately 60 minutes was spent on the discharge of this patient , more than half the time was spent with the patient at the bedside reviewing the events leading up to and during this hospitalization, performing the physical examination, and reviewing the plan of care. AGNES PAPPAS NP [id number]/[facility] #: [id number] TERELL
== END 2019-06-23 14:15 | disposition home or self-care (01) ==
LOC: ED 08:17 → MEDTELE 09:37
PROVIDERS: ADMIT Internal Medicine; ATTEND Internal Medicine
DX: I63.9 Cerebral infarction, unspecified (principal); I10 Essential (primary) hypertension; F17.210 Nicotine dependence, cigarettes, uncomplicated; Z79.82 Long term (current) use of aspirin; Z79.899 Other long term (current) drug therapy; F41.9 Anxiety disorder, unspecified
CPT/HCPCS: 36415; 70450; 70544; 70547; 70551; 80048; 80053; 80061; 81003; 82607; 83605; 84443; 84484; 85025; 85610; 85730; 93005; 93306; 96372; 99284; A9270-GY; C8929; G0378; G8978-GP-CI; G8979-GP-CI; G8980-GP-CI; G8996-GN-CJ; G8997-GN-CI; J1650